=== PATIENT | female | born 1970 | race Asian ===

== ENCOUNTER 2022-05-08 09:13 | Emergency (ER) | payer OTHER ==
[~2022-05-08] VITALS: Ht 147.3 cm; Wt 54.5 kg
[2022-05-08 09:45] VITALS: BP 126/78
[2022-05-08] MEDS ORDERED: KETOROLAC TROMETH 60MG/2ML VIAL IM ONE (10:15)
[2022-05-08] MEDS ORDERED: IBUP800T27 PO (10:37)
[2022-05-08] MEDS ORDERED: METH750T22 PO (10:37)
== END 2022-05-08 10:43 | disposition home or self-care (01) ==
LOC: ER 09:13
DX: M25.511 Pain in right shoulder (principal); M75.101 Unspecified rotator cuff tear or rupture of right shoulder, not specified as traumatic; Z88.2 Allergy status to sulfonamides
CPT/HCPCS: 73030; 96372; 99283; J1885